=== PATIENT | male | born 1980 | race Caucasian/White ===

== ENCOUNTER → 2017-05-19 12:20 | Outpatient (CLI) | payer OTHER, SELFPAY ==
--- NOTE | 2017-05-19 12:27 | RAD_ITS ---
STUDY: X-RAY - LUMBAR SPINE REASON FOR EXAM: Male, 36 years old. Back pain TECHNIQUE: Five view(s) of the lumbar spine were obtained. COMPARISON: July 15, 2013 FINDINGS: There is straightening of the normal lumbar lordosis. There is no significant scoliosis. There is normal alignment of the vertebrae. The vertebral bodies show no significant abnormalities. Vertebral body heights are maintained. There is mild disc space narrowing at L5-S1. The soft tissues are unremarkable. RAD/L/S Spine Min 4 Views IMPRESSION: There are mild degenerative disc changes at L5-S1 which are new since the prior study. Electronically Signed: Grace Nugent MD at 8:15 EDT Tel Direct: [phone], Service support ,
== END ==
PROVIDERS: Family Provider Family Medicine; PCP Family Medicine; Visit Provider Family Medicine
DX: M51.37 Other intervertebral disc degeneration, lumbosacral region (principal)
CPT/HCPCS: 72110

== ENCOUNTER → 2017-06-18 16:57 | Outpatient (CLI) | payer OTHER, SELFPAY ==
--- NOTE | 2017-06-18 17:14 | MRI_ITS ---
STUDY: MRI LUMBAR SPINE WITHOUT CONTRAST REASON FOR EXAM: Male, 36 years old. Low back pain with left lower extremity sciatica TECHNIQUE: Standardized fat and water weighted pulse sequences were obtained in the sagittal and axial planes. COMPARISON: None FINDINGS: T12-L1: Normal endplates. Normal disc height, hydration and morphology. Normal bilateral facet joints. Normal central canal and bilateral lateral recesses. Normal bilateral intervertebral neural foramina. Normal lumbar lordosis. There is no substantial scoliosis. Normal conus medullaris that terminates at L1 L1-2: Normal endplates. Normal disc height, hydration and morphology. Normal bilateral facet joints. Normal central canal and bilateral lateral recesses. Normal bilateral intervertebral neural foramina. L2-3: Normal endplates. Normal disc height, hydration and morphology. Normal bilateral facet joints. Normal central canal and bilateral lateral recesses. Normal bilateral intervertebral neural foramina. L3-4: Normal endplates. Normal disc height, hydration and morphology. Normal bilateral facet joints. Normal central canal and bilateral lateral recesses. Normal bilateral intervertebral neural foramina. L4-5: Normal endplates. Normal disc height, hydration and minimal annular bulge with tiny right posterolateral/foraminal disc protrusion. Mild facet arthropathy and thickening of ligamenta flava.. Normal central canal. Mild right lateral recess and neural foraminal encroachment. L5-S1: Degenerative endplate changes. Normal disc height, hydration with small central disc protrusion and large left posterolateral disc extrusion with inferior migration of disc fragment displacing the descending S1 nerve root. Bilateral facet arthropathy. Normal central canal. Mild bilateral recess encroachment. Severe left subarticular stenosis Normal bilateral intervertebral neural foramina. Normal visualized sacral ala. Normal visualized paraspinous soft tissue structures. MRI/Spine Lumbar (Routine) IMPRESSION: Spinal stenosis at L4-5 on the right and on the left at L5-S1 secondary to large left posterolateral disc extrusion with inferior migration of disc fragment Electronically Signed: Mihai Barlow MD at 19:18 EDT , Service support ,
== END ==
PROVIDERS: Family Provider Family Medicine; PCP Family Medicine; Visit Provider Anesthesiology Pain Medicine
DX: M48.07 Spinal stenosis, lumbosacral region (principal); M51.27 Other intervertebral disc displacement, lumbosacral region; R29.898 Other symptoms and signs involving the musculoskeletal system
CPT/HCPCS: 72148

== ENCOUNTER 2018-01-16 08:30 | Outpatient (RCR) | payer OTHER, SELFPAY ==
--- NOTE | 2017-10-30 13:45 | HP.PTEVAL_ITS ---
Patient's Visit Information CHANDLER DAILEY is a 37 year old M referred to Physical Therapy by Nelson Rodriguez with a diagnosis of BACK AND LEFT LEG PAIN. Date of Evaluation: 10/30/17 Physical Therapist: Daisy Simon Visit Plan Frequency: 2-3x /Week Duration: 4-6 Weeks Plan: POSTURE CORRECTION/STRENGTHENING, INSTRUCTION IN APPROPRIATE BODY MECHANICS AND ACTIVITY MODIFICATIONS. DLS STARTING WITH A NEUTRAL SPINE PROGRESSING ROM TOLERATED. JOSE LE ROM, STRETCHING AND STRENGTHENING. HEP INSTRUCTION. 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 TRAVELS BY PLANE AND CAR. WORKING TRY ON [employer]. PATIENT REPORTS HE HAS 3 KIDS. 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 AVOIDING LIFTS. PATIENT IS NOT SPECIFIC WITH WHAT MACHINES HE IS USING. 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 PATIENT REPORTS HE IS BACK TO NORMAL ACTIVITY EXCEPT DEADLIFTS, FREE WEIGHTS AND LIFTING SUPER HEAVY THINGS. Disability: NO. Present symptoms: LEFT BUTTOCK, LEFT THIGH, LEFT LEG. PATIENT DENIES NUMBNESS AND TINGLING. HE ALSO DENIES FOOT SX'S. NO RIGHT SX'S. Present since: APPROX JULY 2017. Pain Scale: WORST 6/10 SHOOTING BREIF PAINS NOW SINCE CORTISONE SHOTS. LEAST 0/10 90% OF THE TIME. Currently: 0/10. Commenced as a result of: WORKING OUT DOING LIFTS WITH TOO MUCH WEIGHT AND NEXT DAY COULDN'T MOVE. PATIENT REPORTS IT HAD BEEN AWHILE SINCE HE HAD BEEN IN THE GYM. PATIENT REPORTS THE DISC EXPLODED AND WAS PRESSING ON THE SCIATIC NERVE. Symptoms at onset: ENTIRE LLE TO BOTTOM OF THE FOOT. Worse: AWKWARD POSITIONS SITTING IN THE CHAIR. RANDOM. Better: SHIFTING POSITION. Disturbed sleep: NO. Previous history/Previous treatment: PATIENT REPORTS HE WENT TO A CHIROPRACTOR ABOUT 10 YEARS AGO 6 OR 7 TIMES AND THEN HE WENT TO A CHIROPRACTOR FOR ONE VISIT THIS EPISODE BEFORE HE KNEW IT WAS AN EXTRUDED DISC. RELATES INCIDENT 10 YEARS AGO POSSIBLY TO SOCCER. NO BACK SURGERY. PATIENT REPORTS [address] RODRIGUEZ THIS EPISODE WITH THE LAST ONE BEING SEPTEMBER 15 2017. HE REPORTS THE INJECTIONS HELPED A LOT. Coughing/sneezing/straining: NEGATIVE. Gait: NORMAL. Difficulty initiating urinatin: NO. Accidents: NO. Unexplained weight loss: NO. Imaging: MRI OF LUMBAR SPINE: L4-5: Normal endplates. Normal disc height, hydration and minimal annular bulge with tiny right posterolateral/foraminal disc protrusion. Mild facet arthropathy and thickening of ligamenta flava.. Normal central canal. Mild right lateral recess and neural foraminal encroachment. L5-S1: Degenerative endplate changes. Normal disc height, hydration with. small central disc protrusion and large left posterolateral disc extrusion. with inferior migration of disc fragment displacing the descending S1 nerve. root. Bilateral facet arthropathy. Normal central canal. Mild bilateral. recess encroachment. Severe left subarticular stenosis Normal bilateral. intervertebral neural foramina. Normal visualized sacral ala. Normal visualized paraspinous soft tissue structures. IMPRESSION: Spinal stenosis at L4-5 on the right and on the left at L5-S1 secondary to. large left posterolateral disc extrusion with inferior migration of disc. fragment. PMH: UNREMARKABLE. Recent major surgery: NO. OTHER: SURGICAL CONSULT PENDING DR. LANDIN IN DECEMBER. PATIENT REPORTS HE IS SUPPOSED TO BE TAKING PRESCRIPTION ALEVE BUT HE ISN'T TAKING IT BECAUSE HE ISN'T A BIG FAN OF PILLS OR MEDICINE IN GENERAL. PATIENT REPORTS HE ISN'T NOT EVEN HAVING PAIN DAILY AT THIS POINT. THE PAIN OCCURS MAYBE WEEKLY. - Objective Sitting/Standing Posture: POOR. VERY SLOUCHED. FORWARD HEAD AND ROUNDED SHOULDERS. Lordosis: NORMAL. Lateral shift: NO. Relevant shift: N/A. Active Correction of posture: NE. Other Observations: THIS PATIENT AMBULATES INDEP'LY INTO PT WITHOUT ANY ASSISTIVE DEVICES OR GROSS DEVIATIONS NOTED. INDEP TRANSFER SIT TO STAND WITHOUT UE ASSIST OR HESITATION INITIATING GAIT AFTER SITTING. PATIENT REMAINED SX FREE THROUGHOUT SESSION. Motor deficit: JOSE LE'S 5/5 WITH MMT'ING. Sensory deficit: NO. ROM deficit: MILD TIGHTNESS JOSE HS'S AND GASTROC SOLEUS COMPLEX'S. Reflexes: 2/3 JOSE LE'S. Dural Signs: MILD POSITIVE RIGHT LE DURAL SIGN (ALTHOUGH MRI SHOWS MORE PROBLEMS ON THE LEFT) . Lumbar mvmt loss: flex - NIL - NE. ext - MOD IN STANDING - NE, MIN TO MOD IN LYING - NE. R SG - NIL - NE. L SG - NIL - NE. PATIENT HAS GOOD LUMBAR ROM OVER-ALL AND TESTING DOES NOT PROVOKE ANY C/O PAIN. Core strength: FAIR. OTHER: REP EIL - NE AND NO CHANGE IN MECHANICAL RESPONSE. - Goals Goal 1:: DECREASE OCCURRENCES OF LLE EPISODES OF PAIN Goal Time Frame: 4-6 Weeks Goal 2:: PATIENT WILL SUCCESSFULLY RETURN TO PRIOR LEVEL OF FUNCTION WITHOUT PAIN OR GROSS DEVIATIONS. Goal Time Frame: 4-6 Weeks Goal 3:: INSTRUCT IN PROPHYLAXIS Goal Time Frame: 4-6 Weeks - Rehabilitation Potential Rehabilitation Potential: Good - Anticipated Interventions Patient/Client Instruction: Educate patient on: Condition, Plan of Care, Risk Factors, Benefits of Fitness Program For the Purpose of:: To improve self management Therapeutic Exercise to Include: Strength training, Body mechanics, Postural training, Flexibilty training, Dynamic Lumbar Stabilization For the Purpose of:: To decrease pain, To increase ROM, To improve muscle performance and motor function, To increase tolerance to activity/condition/ position, To improve ability of physical actions for home/community/work/leisure Cryotherapy (ice pack, ice massage): Yes - NEEDED For the Purpose of:: To decrease pain, To decrease swelling/inflammation Thank you for the opportunity to evaluate your patient. For Medicare and Medicare HMO plans, please review the plan of care and approve it. It will need to be FAXED BACK to us at [phone] for Medicare purposes. Please let me know if there are questions or concerns regarding this plan of care. Physician Signature: Date:
--- NOTE | 2017-12-11 13:27 | HP.PTREVAL_ITS ---
Nelson Rodriguez, It has been my pleasure to treat CHANDLER DAILEY over the last 12 visits for BACK AND LEFT LEG PAIN. Please see the progress note below for an update on the physical therapy plan of care! Subjective: PATIENT REPORTS ARRIVING LATE DUE TO JUST COMING FROM DR. RODRIGUEZ'S OFFICE. PATIENT REPORTS HE FEELS LIKE THE JOINTS AREN'T TIGHT SO HIS MOBILITY HAS IMRPOVED. HE REPORTS HE CAN'T REMEMBER THE LAST TIME HE HAD SHOOTING PAIN. STATES HIS LOW BACK ALWAYS HAS SOME TIGHT FEELING IN JOSE LOW BACK AREA. DR. RODRIGUEZ RECOMMENDED ANOTHER JOSE G AND TOLD HIM TO GO EASY AT THE GYM WITH WEIGHTS. JOSE G PENDING NEXT FRIDAY. PATIENT REPORTS HE FEELS LIKE PT HAS HELPED SIGNIFICANTLY AND HE WANTS TO CONTINUE SO HE CAN DO EVERYTHING POSSIBLE BEFORE MEETING WITH DR. MUSHTAQ EVANS AND HAVING SURGERY CONVERSATIONS. PATIENT REPORTS THAT HE IS STILL WORKING OUT ON HIS OWN BUT AVOIDING BENDING, TWISTING AND DEADLIFTS. Objective/Function: PATIENT IS TOLERATING PRE WELL AND THIS PT WOULD RECOMMEND CONTINUED PT BASED ON IMPROVMENTS MADE AND ROOM FOR MORE IMPROVEMENT. Sitting/Standing Posture: NOTICABLE EFFORT BEING MADE BY PATIENT TODAY TO MAINTAIN CORRECT POSTURE BUT ONLY SUCCEEDING INTERMITTENTLY. Lordosis: NORMAL. Lateral shift: NO. Relevant shift: N/A. Other Observations: THIS PATIENT AMBULATES INDEP'LY INTO PT WITHOUT ANY ASSISTIVE DEVICES OR GROSS DEVIATIONS NOTED. INDEP TRANSFER SIT TO STAND WITHOUT UE ASSIST OR HESITATION INITIATING GAIT AFTER SITTING. PATIENT WAS NOT SYMPTOM FREE THROUGHOUT THIS SESSION LIKE HE WAS AT INITIAL EVALUATION. Motor deficit: JOSE LE'S 5/5 WITH MMT'ING AND TESTING DOES NOT PROVOKE C/O INCREASED SX'S. Sensory deficit: NO. ROM deficit: MILD TIGHTNESS JOSE HS'S AND GASTROC SOLEUS COMPLEX'S. Dural Signs: NEGATIVE RIGHT AND POSITIVE LLE DURAL SIGNS. Lumbar mvmt loss: flex - NIL - NE. ext - MOD IN STANDING AND NO C/O INCREASED SX IN STRAIGHT PLANE BUT EXTENDING INTO JOSE QUADRANTS PROVOKES PAIN (LEFT QUADRANT > RIGHT). R SG - MIN - INCREASES LBP. L SG - NIL - INCREASES LBP. PATIENT HAS GOOD LUMBAR ROM OVER- ALL AND TESTING ONLY PROVOKES BREIF INCREASE IN SX'S. CORE STRENGTH - GOOD. OTHER: THE ONLY TESTING TODAY THAT PROVOKED C/O LLE SX'S WAS LLE DURAL TESTING. Plan Plan: CONT PT PER ORIG POC WORKING TOWARD SAME GOALS 3X'S A WEEK X 4 WEEKS. PATIENT AGREEABLE. Goals Goal 1:: DECREASE OCCURRENCES OF LLE EPISODES OF PAIN Goal Time Frame: 4-6 Weeks Goal 2:: PATIENT WILL SUCCESSFULLY RETURN TO PRIOR LEVEL OF FUNCTION WITHOUT PAIN OR GROSS DEVIATIONS. Goal Time Frame: 4-6 Weeks Goal 3:: INSTRUCT IN PROPHYLAXIS Goal Time Frame: 4-6 Weeks Anticipated Interventions Patient/Client Instruction: Educate patient on: Condition, Plan of Care, Risk Factors, Benefits of Fitness Program For the Purpose of:: To improve self management Therapeutic Exercise to Include: Strength training, Body mechanics, Postural training, Flexibilty training, Dynamic Lumbar Stabilization For the Purpose of:: To decrease pain, To increase ROM, To improve muscle performance and motor function, To increase tolerance to activity/condition/position, To improve ability of physical actions for home/community/work/leisure Cryotherapy (ice pack, ice massage): Yes - NEEDED For the Purpose of:: To decrease pain, To decrease swelling/inflammation Please do not hesitate to contact me at [phone] by phone or if you have questions or concerns regarding this new plan of care! Sincerely, Daisy Martin
--- NOTE | 2018-01-16 09:31 | HP.PTDCSUM ---
HP - PT D/C Summary It has been my pleasure to treat CHANDLER DAILEY under orders from Nelson Mckeon, for the diagnosis of BACK AND LEFT LEG PAIN for a total of 22 visit(s). Discharge Date: 01/16/18 Please see the following information for a summary of their discharge status. - Subjective Subjective: PATIENT REPORTS HE HASN'T HAD ANY PAIN FOR ABOUT 2-3 WEEKS. PATIENT REPORTS HIS FLEXABILITY AND MOBILITY HAS IMPROVED SINCE STARTING PT AND HE HAS GAINED KNOWLEDGE IN WHAT HE SHOULD AND SHOULD NOT BE DOING WITH ACTIVITIES AND INDEP EX. HE IS CURRENTLY STRETCHING AT HOME AND GOING TO THE [employer] GYM. PATIENT REPORTS HIS 1ST SURGICAL CONSULT IS NEXT FRIDAY WITH DR. LANDIN. HE HAS HAD 4 JOSE G'S AND THEY HAVE ALL HELP. NO LONGER HAVING SHOOTING PAINS. REALLY DOESN'T WANT TO HAVE ANY MORE INJECTIONS. USING LUMBAR ROLLS ARE A BIG HELP. - Pain Back Pain Intensity (Out of 10): 0 - Overall Improvement % Improvement: 85 - Objective Objective/Function: ALL GOALS MET. ONLY C/O PAIN IS WITH SITTING. UPONE EXAM: Motor deficit: JOSE LE'S 5/5 WITH MMT'ING AND TESTING DOES NOT PROVOKE C/O INCREASED SX'S. Sensory deficit: NO. ROM deficit: MILD TIGHTNESS JOSE HS'S AND GASTROC SOLEUS COMPLEXES. NEGATIVE JOSE LE DURAL SIGNS. Lumbar mvmt loss: flex - NIL - NE. ext - MIN TO MOD IN STANDING AND IN LYING. NO PAIN WITH TESTING STRAIGHT PLANE OR INTO RIGHT OR LEFT QUADRANTS TODAY. R SG - NIL. L SG - NIL. PATIENT HAS GOOD LUMBAR ROM OVER-ALL AND TESTING DOES NOT PROVOKE C/O ANY PAIN TODAY. CORE STRENGTH - GOOD. - Goals Goal 1:: DECREASE OCCURRENCES OF LLE EPISODES OF PAIN Goal Progress: Goal Met Goal 2:: PATIENT WILL SUCCESSFULLY RETURN TO PRIOR LEVEL OF FUNCTION WITHOUT PAIN OR GROSS DEVIATIONS. Goal Progress: Goal Met Goal 3:: INSTRUCT IN PROPHYLAXIS Goal Progress: Goal Met - Plan Plan: D/C TO INDEP EX. PATIENT AGREEABLE. - D/C Information If there are questions or concerns regarding this patient's physical therapy, please feel free to call me at [phone]. Thank you for the referral of this patient. Sincerely, Daisy Martin
== END 2018-01-16 19:00 | disposition home or self-care (01) ==
LOC: PT 08:30
PROVIDERS: Family Provider Family Medicine; PCP Family Medicine; Visit Provider Anesthesiology Pain Medicine
DX: M54.9 Dorsalgia, unspecified (principal); M79.605 Pain in left leg
CPT/HCPCS: 97110; 97162; 97164; 97530

== ENCOUNTER → 2018-01-20 08:32 | Outpatient (CLI) | payer OTHER, SELFPAY ==
--- NOTE | 2018-01-20 08:33 | RAD_ITS ---
STUDY: X-RAY - LUMBOSACRAL SPINE REASON FOR EXAM: Male, 37 years old. Lower back pain. TECHNIQUE: 6 view(s) of the lumbosacral spine were obtained. COMPARISON: May 19, 2017. FINDINGS: Normal lumbar lordosis. There is no substantial scoliosis. There is mild retrolisthesis of L5 on S1. Otherwise normal alignment of the vertebrae. There is no alteration of alignment in flexion or extension. Is minimal endplate spondylosis most marked at 045 and L5-S1. There is disc space narrowing at L5-S1. There is no evidence of acute fracture or loss of vertebral axial height. Normal bilateral sacral ala, sacroiliac joints, and visualized sacrum. Normal visualized soft tissue structures. RAD/L/S Spine Comp/w Bending Views IMPRESSION: Degenerative changes lumbar spine most marked at L5-S1. There is no interval change. Electronically Signed: Az Mcfarlane DO at 16:50 EST Tel [phone], Service support ,
== END ==
PROVIDERS: Family Provider Family Medicine; PCP Family Medicine; Referring Provider Orthopaedic Surgery; Visit Provider Orthopaedic Surgery
DX: M54.16 Radiculopathy, lumbar region (principal)
CPT/HCPCS: 72114

== ENCOUNTER → 2022-07-01 | Outpatient (CLI) | payer BC, SELFPAY ==
--- NOTE | 2022-07-01 | VAS_PTH ---
PATIENT: CHANDLER DAILEY LOC: [facility]#:[id number] AGE/SX: 41/M ROOM: RE07/01/[address]: Dr. Saurabh Simmons MD : 1980 BED: DIS: 07/01/2022 SPEC #: [id number] RECD: 07/01/22 16:09 STATUS: MADYSON CARVALHO #: [id number] MAILE: 07/01/22 00:[address]: Saurabh Simmons DEPT: SURGICAL PATHOLOGY RECD BY: Tanner Alvarez ENTERED: 07/02/22 09:32 SP TYPE: VAS OTHR DR: Dr. Juice Ochoa MD Tissues: A - Vas deferens, NOS B - Vas deferens, NOS Procedures: Surgery Specimen Level II HEADER OPERATION: Bilateral partial vasectomy PRE-OP DIAGNOSIS: Sterilization TISSUE SUBMITTED: A ? Right vas deferens, B ? Left vas deferens MICROSCOPIC DIAGNOSIS A. Right vas deferens, segmental vasectomy: Complete cross-section of vas deferens with no pathologic change. B. Left vas deferens, segmental vasectomy: Complete cross-section of vas deferens with no pathologic change. AM:zaira 07/03/2022 MICROSCOPIC DESCRIPTION Slides are reviewed. GROSS DESCRIPTION A - Received is one container designated right vas deferens. The specimen consists of a cylindrical segment of pink-grijalva soft tissue measuring 1.0 cm in length and 0.2 cm in maximum diameter. The specimen is totally submitted in one cassette. B - Received is one container designated left vas deferens. The specimen consists of a cylindrical segment of pink-grijalva soft tissue measuring 1.3 cm in length and 0.2 cm in maximum diameter. The specimen is totally submitted in one cassette. / AM:zaira 07/02/2022 TC:4 [facility]: [id number] x2
== END | disposition home or self-care (01) ==
LOC: LABSPEC 16:13
PROVIDERS: PCP Family Medicine; Referring Provider Surgery; Visit Provider Surgery
DX: Z30.2 Encounter for sterilization (principal)
CPT/HCPCS: 88302

== ENCOUNTER → 2023-02-10 | Outpatient (CLI) | payer BC, SELFPAY ==
[2023-02-10 11:07] LABS: Semen Analysis Post Vas PATH REVIEW ONLY
[2023-02-11 13:45] LABS: Pathologist Review Reviewed
== END | disposition home or self-care (01) ==
LOC: LABSPEC 08:56
PROVIDERS: PCP Family Medicine; Referring Provider Surgery; Visit Provider Surgery
DX: Z30.2 Encounter for sterilization (principal)
CPT/HCPCS: 89321

== ENCOUNTER 2023-11-15 09:26 | Emergency (ER) | payer BC, SELFPAY ==
[2023-11-15 09:26] VITALS: BP 138/103; PULSE 80; RESP 16; TEMP 36; O2SAT 97; BMI 24.6
--- NOTE | 2023-11-15 09:32 | EX.ED.UPPERE ---
HPI History of Present Illness HPI Narrative: Patient presents with left hand laceration that occurred this morning. Patient states he was using a knife to cut a pork shoulder. Patient states the knife slipped and cut his left hand. Patient is right-hand dominant. Patient is unsure of his last tetanus. Patient states the bleeding is worse with any movement. Patient denies any paresthesias or weakness. Patient denies any other injuries. Chief Complaint: Laceration Informant: patient Occured/Mechanism Comment: Accidentally cut with a knife Onset/Context/Timing Onset: Today Context: Sudden Onset Timing: Continuous Quality of Pain: Dull Location: Left hand Worsened by: Movement Relieved by: Nothing Associated Symptoms Associated Symptoms: Negative for Parasthesia or Weakness Narrative Tetanus Immunization: Unknown [facility] Medical History Encounter for sterilization Home Medications ?Medication ?Instructions ?Recorded ?Last Taken ?Type acetaminophen 300 mg-codeine 15 mg 1 tab PO Q6H PRN pain #10 tabs 07/01/22 Unknown Rx tablet Allergy/AdvReac Type Severity Reaction Status Date / Time No Known Allergies Allergy Verified 11/15/23 09:28 Family History Grandfather Cancer Mother Diabetes Father Diabetes Brother Kidney disease Surgical History No history of previous surgery Social History Smoking Status: Never smoker alcohol intake: current substance use type: does not use ROS ROS ED Constitutional Constitutional ED: Denies chills or fever(s) Eyes Eyes: Denies blurry vision or change in vision ENT ENT ED: Denies rhinorrhea or sore throat Cardiovascular Cardiovascular: Denies chest pain or palpitations Respiratory/Chest Respiratory/Chest: Denies cough or dyspnea Gastrointestinal Gastrointestinal: Denies nausea or vomiting Genitourinary Genitourinary ED: Denies dysuria or hematuria Musculoskeletal Musculoskeletal: Denies back pain or neck pain Integumentary Denies abscess or rash Neurologic Neurologic: Denies headache(s) or weakness Allergic/Immunologic Allergic/Immunologic ED: Denies mouth swelling or urticaria EXAM Physical Exam Const Vital Signs: 11/15/23 09:26 Temperature 96.8 F L Temperature Source Temporal Pulse Rate 80 Respiratory Rate 16 Blood Pressure 138/103 H Blood Pressure Mean 114 Pulse Ox 97 Oxygen Delivery Method Room Air Positive well nourished and well developed General Appearance ED: well developed and NAD HEENT Reports moist mucous membranes Neck full ROM and supple Extremity Extremity Narrative: There is a 2 cm full-thickness linear laceration over the palmar aspect of the left hand over the distal second metacarpal. There is mild gapping of the wound margins. There is mild bleeding noted. There are no foreign bodies noted. There are no tendon lacerations noted. Strength is 5/5 in flexion extension of the MP, PIP, and DIP joints. Sensation was intact to light touch in all digits. Capillary refill was less than 2 seconds in all digits. Neuro oriented x3, CN's II-XII intact bilaterally, moves all extremities, no focal motor deficits and no sensory deficits noted Sensorium / Orientation: alert Motor Exam: strength 5/5 throughout Psych mental status grossly normal MDM MDM MDM Narrative Medical decision making narrative: Patient was given a tetanus booster. The wound was cleaned and irrigated with copious amounts of normal saline. The wound was anesthetized with 1% plain lidocaine locally. The wound was closed with 3 simple interrupted #4-0 nylon sutures under sterile technique. Patient tolerated the procedure well. Bacitracin dressing was applied. Patient was instructed to keep the wound clean and dry. Patient was instructed to follow-up with his primary care physician in 5 to 7 days for wound recheck and suture removal. Patient understood and was agreeable with the plan. All questions were answered. Procedures Lacerations Left hand: Length: 2 cm Depth: Sub Q Shape: Linear Prep: Sterile Conditions and Chlorhexadine Laceration repair: Irrigated, Lidocaine, Local and Skin sutures Irrigated (ml): 100 Number of Sutures/[place]: 3 Suture Information: Ethilon, Simple and 4-0 Discharge Plan Triage Chief Complaint: Laceration ED Provider: Dariusz Engle Dx/Rx/DC Orders Clinical Impression: Laceration of left hand, Elevated blood pressure reading without diagnosis of hypertension Instructions: ED Laceration, Hand: All Closures Prescriptions: No Action acetaminophen-codeine 300-15 mg tablet 1 tab PO Q6H PRN (Reason: pain) Qty: 10 0RF Primary Care Provider: Juice Ochoa Referrals: Juice Ochoa MD [Primary Care Provider] - 5 Days for suture removal Print Language: Tamazight Disposition Disposition: Home, Self Care
[2023-11-15] MEDS: Diphth,Pertuss(Acell),Tet Vac 0.5 ML Vial IM (09:44)
[2023-11-15] MEDS: Lidocaine 1% (20 ml mdv) 20 ML Vial INFILT (09:45)
== END 2023-11-15 10:33 | disposition home or self-care (01) ==
LOC: ED 10:02
PROVIDERS: Emergency Provider Emergency Medicine; PCP Family Medicine; Visit Provider Emergency Medicine
DX: S61.412A Laceration without foreign body of left hand, initial encounter (principal); R03.0 Elevated blood-pressure reading, without diagnosis of hypertension; X58.XXXA Exposure to other specified factors, initial encounter
CPT/HCPCS: 12001; 90715; 99283